=== PATIENT | female | born 1970 ===

== ENCOUNTER 2018-02-14 10:14 | Outpatient (CLI) | payer OTHER ==
[~2018-02-14] VITALS: Ht 170.2 cm; Wt 76.7 kg
== END 2018-02-14 10:30 | disposition home or self-care (01) ==
LOC: OFIC 805 10:14
DX: R22.1 Localized swelling, mass and lump, neck (principal); S01.512A Laceration without foreign body of oral cavity, initial encounter

== ENCOUNTER 2018-02-21 07:54 | Outpatient (CLI) | payer OTHER | END 2018-02-21 07:56 | disposition home or self-care (01) | LOC: SONOGRAMA 07:54 | DX: R22.2 Localized swelling, mass and lump, trunk (principal) ==

== ENCOUNTER 2018-02-25 15:33 | Outpatient (CLI) | payer OTHER ==
[~2018-02-25] VITALS: Ht 152.4 cm; Wt 76.7 kg
== END 2018-02-25 15:50 | disposition home or self-care (01) ==
LOC: OFIC 805 15:33
DX: K13.79 Other lesions of oral mucosa (principal); R22.1 Localized swelling, mass and lump, neck

== ENCOUNTER 2018-03-10 11:48 | Outpatient (CLI) | payer OTHER ==
[~2018-03-10] VITALS: Ht 152.4 cm; Wt 86.2 kg
== END 2018-03-10 12:00 | disposition home or self-care (01) ==
LOC: OFIC 805 11:48
DX: K13.79 Other lesions of oral mucosa (principal); R22.1 Localized swelling, mass and lump, neck